=== PATIENT | male | born 1960 | race Caucasian/White ===

== ENCOUNTER 2020-09-25 12:51 | Outpatient (CLI) | payer OTHER ==
[~2020-09-25] VITALS: Ht 177.8 cm; Wt 90.2 kg
[2020-09-25] MEDS ORDERED: AMLO-211 PO (13:41)
[2020-09-25] MEDS ORDERED: PANT40TA6 PO (13:41)
[2020-09-25] MEDS ORDERED: ATOR20TA37 PO (13:41)
[2020-09-25] MEDS ORDERED: METF500T17 PO (13:41)
[2020-09-25] MEDS ORDERED: CHLORHEXIDINE 15 ML UDC ONE (13:45)
[2020-09-25] MEDS ORDERED: SODIUM CHLORIDE 0.9% 1,000 ML IV SCH (14:00)
[2020-09-25] MEDS ORDERED: CHLORHEXIDINE 15 ML UDC PO ONE (14:00)
[2020-09-25 14:08] VITALS: BP 152/97
[2020-09-25] MEDS ORDERED: FENTANYL PF 100 MCG/2ML ONE (14:17)
[2020-09-25] MEDS ORDERED: ONDANSETRON 2MG/ML, 2ML ONE (14:26)
[2020-09-25] MEDS ORDERED: PROPOFOL 10 MG/ML, 20ML ONE (14:26)
[2020-09-25] MEDS ORDERED: DEXAMETHASONE 4 MG/ML, 1ML ONE (14:26)
[2020-09-25] MEDS ORDERED: PROMETHAZINE 12.5 MG SUPP PR PRN (15:30)
[2020-09-25] MEDS ORDERED: PROMETHAZINE 25 MG/ML, 1ML IVPush PRN (15:30)
[2020-09-25] MEDS ORDERED: hydrALAzine 20 MG/ML, 1ML IV PRN (15:30)
[2020-09-25] MEDS ORDERED: DIAZEPAM 5 MG/ML, 2ML IVPush PRN (15:30)
[2020-09-25] MEDS ORDERED: LABETALOL 5MG/ML, 20ML IV PRN (15:30)
[2020-09-25] MEDS ORDERED: EPHEDRINE 50 MG/ML, 1ML IVPush PRN (15:30)
[2020-09-25] MEDS ORDERED: ONDANSETRON 2MG/ML, 2ML IVPush PRN (15:30)
[2020-09-25] MEDS ORDERED: ALBUTEROL SULFATE 2.5 MG/3 ML NPPB PRN (15:30)
[2020-09-25] MEDS ORDERED: MIDAZOLAM 1 MG/ML, 2ML IV PRN (15:30)
[2020-09-25] MEDS ORDERED: DIPHENHYDRAMINE 50 MG/ML, 1ML IVPush PRN ×2 (15:30)
[2020-09-25] MEDS ORDERED: ACETAMINOPHEN 325 MG TABLET PO PRN (15:30)
[2020-09-25] MEDS ORDERED: HYDROmorphone 1 MG/ML, 1ML INJ IVPush PRN (15:30)
[2020-09-25] MEDS ORDERED: OXYcodone 5 MG/5 ML ORAL.SOL UDC PO PRN (15:30)
[2020-09-25] MEDS ORDERED: FENTANYL PF 100 MCG/2ML IV PRN (15:30)
[2020-09-25] MEDS ORDERED: MEPERIDINE/PF 25MG/0.5ML IVPush PRN (15:30)
== END 2020-09-25 16:40 | disposition home or self-care (01) ==
LOC: OR 12:51
PROVIDERS: ATTEND Nurse Practitioner Primary Care
DX: M54.2 Cervicalgia (principal); M48.02 Spinal stenosis, cervical region; M48.03 Spinal stenosis, cervicothoracic region; I10 Essential (primary) hypertension; E78.5 Hyperlipidemia, unspecified; E11.9 Type 2 diabetes mellitus without complications; J44.9 Chronic obstructive pulmonary disease, unspecified; Z20.822 Contact with and (suspected) exposure to COVID-19; Z79.84 Long term (current) use of oral hypoglycemic drugs; Z79.899 Other long term (current) drug therapy; Z87.891 Personal history of nicotine dependence; Z88.7 Allergy status to serum and vaccine; Z88.8 Allergy status to other drugs, medicaments and biological substances
CPT/HCPCS: 72141; 82962; 87635; 93005; J1100; J2405; J2704; J3010; J7030